=== PATIENT | male | born 1975 | race African-American/Black ===

== ENCOUNTER 2024-05-20 10:56 | Day surgery (SDC) | payer OTHER ==
[~2024-05-20] VITALS: Ht 180.3 cm; Wt 129.3 kg
[2024-05-20] MEDS ORDERED: LIDOCAINE 2% 100 MG/5 ML UJET TP ONE (12:28)
[2024-05-20] MEDS ORDERED: fentaNYL citrate 0.05 MG/ML VIAL ONE (12:28)
[2024-05-20] MEDS: fentaNYL citrate 0.05 MG/ML VIAL IVP ONE (12:46)
== END 2024-05-20 13:45 | disposition home or self-care (01) ==
LOC: MDS 10:56 → MMU 10:58 → MDS 13:45
PROVIDERS: ATTEND Internal Medicine Gastroenterology
DX: Z12.11 Encounter for screening for malignant neoplasm of colon (principal); F17.210 Nicotine dependence, cigarettes, uncomplicated
CPT/HCPCS: 45378; J3010